=== PATIENT | male | born 1985 | race Caucasian/White ===

== ENCOUNTER 2022-09-04 03:51 | Day surgery (SDC) | payer OTHER ==
[2022-08-21 14:24] VITALS: BMI 34.4
[2022-09-04] MEDS ORDERED: PROPOFOL 20 ML ONE ×2 (08:55→09:58)
[2022-09-04] MEDS ORDERED: ROCURONIUM BROMIDE 50 MG/5 ML SYRINGE ONE ×2 (08:56→10:44)
[2022-09-04] MEDS ORDERED: MIDAZOLAM HCL 2 MG/2 ML SINGLE DOSE VIAL ONE (08:56)
[2022-09-04] MEDS ORDERED: BUPIVACAINE HCL/PF 0.25% (2.5MG/ML) 10 ML VIAL ONE (09:24)
[2022-09-04] MEDS ORDERED: BUPIVACAINE HCL/PF 0.25% (2.5MG/ML) 10 ML VIAL IJ ONE ×3 (09:25→10:00)
[2022-09-04] MEDS ORDERED: DEXAMETHASONE SOD PHOSPHATE 4 MG/1 ML VIAL ONE (10:09)
[2022-09-04] MEDS ORDERED: ONDANSETRON 4 MG/2 ML VIAL ONE (10:09)
[2022-09-04] MEDS ORDERED: ceFAZolin SODIUM 1 GM VIAL ONE (10:11)
[2022-09-04] MEDS ORDERED: ceFAZolin 2 GRAM PREMIX BAG IVPB ONE (10:13)
[2022-09-04] MEDS ORDERED: GLYCOPYRROLATE 0.2 MG/1 ML VIAL ONE (11:38)
[2022-09-04] MEDS ORDERED: NEOSTIGMINE METHYLSULFATE 0.5 MG/1 ML - 10 ML MDV ONE (11:38)
[2022-09-04] MEDS ORDERED: KETOROLAC TROMETHAMINE 30 MG/1 ML VIAL ONE (11:40)
[2022-09-04] MEDS ORDERED: oxyCODONE HCL 5 MG TABLET PO PRN (12:13)
[2022-09-04] MEDS ORDERED: ONDANSETRON 4 MG/2 ML VIAL IVPUSH PRN (12:13)
[2022-09-04] MEDS ORDERED: ACETAMINOPHEN 1000 MG/100 ML BAG IVPB ONE ×2 (12:13→12:40)
[2022-09-04] MEDS ORDERED: LACTATED RINGERS SOLUTION 1,000 ML IV SCH (12:15)
[2022-09-04] MEDS ORDERED: ACETAMINOPHEN INJECTION 100 ML IVPB ONE (12:32)
[2022-09-04 14:07] VITALS: RESP 18; TEMP 97.6
[2022-09-04 15:32] VITALS: BP 124/71; PULSE 72
== END 2022-09-04 15:10 | disposition home or self-care (01) ==
LOC: JASU-SURG 03:51
PROVIDERS: ATTEND Surgery
PROC: 0YU54JZ Supplement Right Inguinal Region with Synthetic Substitute, Percutaneous Endoscopic Approach (ICD-10-PCS; principal; 2022-09-04 10:15)
DX: K40.90 Unilateral inguinal hernia, without obstruction or gangrene, not specified as recurrent (principal)
CPT/HCPCS: 94760; C1781